=== PATIENT | male | born 1940 | race Two or more races ===

== ENCOUNTER → 2020-07-14 | Outpatient (CLI) | payer OTHER ==
[~2020-07-14] MED LIST: COUMADIN10 MG; HYDROCHLOROTH12.5 M1; LANOXIN0.25 MG; PROCARDIA90 MG/BLIS; SIMVASTATIN10 MG; ZESTRIL20 MG
== END | disposition home or self-care (01) ==
LOC: NUCLEAR 10:00
PROVIDERS: ATTEND Internal Medicine
DX: I70.213 Atherosclerosis of native arteries of extremities with intermittent claudication, bilateral legs (principal)

== ENCOUNTER → 2020-07-18 16:24 | Outpatient (CLI) | payer OTHER | END | disposition home or self-care (01) | LOC: NUCLEAR 11:00 | PROVIDERS: ATTEND Internal Medicine | DX: I87.9 Disorder of vein, unspecified (principal) ==

== ENCOUNTER 2021-09-17 15:54 | Emergency (ER) | payer OTHER ==
[~2021-09-17] VITALS: Ht 177.8 cm; Wt 113.4 kg
== END 2021-09-17 22:10 | disposition left against medical advice (07) ==
LOC: ER 15:54
DX: R10.32 Left lower quadrant pain (principal); K40.90 Unilateral inguinal hernia, without obstruction or gangrene, not specified as recurrent; I11.0 Hypertensive heart disease with heart failure; I50.9 Heart failure, unspecified; Z88.0 Allergy status to penicillin

== ENCOUNTER 2022-06-26 10:13 | Emergency (ER) | payer OTHER ==
[~2022-06-26] VITALS: Ht 180.3 cm; Wt 93.0 kg
== END 2022-06-26 14:50 | disposition home or self-care (01) ==
LOC: ER 10:13
DX: S50.312A Abrasion of left elbow, initial encounter (principal); W18.31XA Fall on same level due to stepping on an object, initial encounter; Y93.89 Activity, other specified; Y92.013 Bedroom of single-family (private) house as the place of occurrence of the external cause; S39.82XA Other specified injuries of lower back, initial encounter; Z88.0 Allergy status to penicillin

== ENCOUNTER → 2023-02-28 | Outpatient (CLI) | payer OTHER | END | disposition home or self-care (01) | LOC: RAD 12:34 | DX: J45.998 Other asthma (principal) ==

== ENCOUNTER 2023-03-19 20:40 | Inpatient (IN) | payer OTHER ==
[~2023-03-19] VITALS: Ht 177.8 cm; Wt 95.3 kg
[2023-03-19 23:19] LABS: HEMATOCRIT 34.4 % (39.0-48.0); HEMOGLOBIN 11.5 g/dL (13-16.00); MEAN CELL VOLUME 91.2 fL (80.0-100.00); MEAN CORPUSCULAR HEMOGLOBIN 30.4 pg (27.00-32.0); MEAN CORPUSCULAR HGB CONC 33.4 g/dl (32.0-36.0); PLATELET COUNT 189 K/uL (150-450); RED BLOOD COUNT 3.77 M/uL (4.00-6.00); RED CELL DISTRIBUTION WIDTH 16.3 % (11.5-14.5)
[2023-03-19 23:25] LABS: URINE APPEARANCE Clear; URINE BILIRRUBIN Negative (NEGATIVE); URINE BLOOD Negative; URINE COLOR Yellow; URINE GLUCOSE Negative (NEGATIVE); URINE LEUKOCYTE Negative; URINE NITRATE Negative; URINE PROTEIN Negative (NEGATIVE)
[2023-03-19 23:26] LABS: URINE BACTERIA 206.6 uL (0.0-1933); URINE EPITHELIAL CELLS 4.3 uL (0.0-38.8); URINE RBC 5.6 uL (0.0-20.8)
[2023-03-19 23:38] LABS: ALBUMIN 3.2 gm/dL (3.4-5.0); BILIRUBIN TOTAL 2.1 mg/dL (0.3-1.2); CALCIUM 9.3 mg/dL (8.5-10.1); GFR 71.54; GLOBULINA 3.5 G/DL (2.4-3.5); POTASSIUM 4.88 mEq/L (3.5-5.1); TOTAL PROTEIN 6.7 gm/dL (6.4-8.2)
[2023-03-19 23:41] LABS: INR 2.22
[2023-03-19 23:44] LABS: PARTIAL THROMBOPLASTIN TIME 39.3 SECONDS (22.0-34.0)
[2023-03-20] MEDS ORDERED: FUROsemide 20 MG/2 ML VIAL IV ONE (02:45)
[2023-03-20] MEDS ORDERED: FUROsemide 40 MG/4 ML VIAL IV SCH (11:40)
[2023-03-20 14:25] LABS: INR 2.28
[2023-03-20 14:31] LABS: PROTHROMBIN TIME 22.5 SECONDS (9.0-11.5)
[2023-03-20] MEDS ORDERED: SIMVASTATIN 10 MG TABLET PO SCH (17:00)
[2023-03-20 21:11] LABS: TP PERITONEAL FLUID 3.5 g/dl
[2023-03-21] MEDS ORDERED: NIFEDIPINE 90 MG TAB.SA.OSM PO SCH (09:00)
[2023-03-21] MEDS ORDERED: LISINOPRIL 20 MG TABLET PO SCH (09:00)
[2023-03-21] MEDS ORDERED: DIGOXIN 0.125 MG TABLET PO SCH (09:00)
[2023-03-21 19:14] LABS: INR 3.47; PROTHROMBIN TIME 33.2 SECONDS (9.0-11.5)
[2023-03-21] MEDS ORDERED: WARFARIN SODIUM 7.5 MG TABLET PO SCH (21:00)
[2023-03-21] MEDS ORDERED: WARFARIN SODIUM 5 MG TABLET PO SCH (21:00)
[2023-03-22 06:26] LABS: INR 3.14; PROTHROMBIN TIME 34.7 SECONDS (9.0-11.5)
[2023-03-22] MEDS ORDERED: SPIRONOLACTONE 25 MG TABLET PO SCH (09:00)
== END 2023-03-22 16:37 | disposition home or self-care (01) | DRG 309 ==
LOC: ER 20:40 → SEC-K 03-20 11:58 → MEDJ 03-20 11:58
PROVIDERS: Emergency Medicine; ADMIT Internal Medicine; ATTEND Internal Medicine
PROC: 0W9G3ZZ Drainage of Peritoneal Cavity, Percutaneous Approach (ICD-10-PCS; principal; 2023-03-20)
PROC: B24BYZZ Ultrasonography of Heart with Aorta using Other Contrast (ICD-10-PCS; 2023-03-21)
DX: I48.91 Unspecified atrial fibrillation (principal); R18.8 Other ascites; I48.20 Chronic atrial fibrillation, unspecified; I11.0 Hypertensive heart disease with heart failure; I50.9 Heart failure, unspecified; N50.89 Other specified disorders of the male genital organs

== ENCOUNTER 2023-04-17 13:54 | Inpatient (IN) | payer OTHER ==
[~2023-04-17] VITALS: Ht 177.8 cm; Wt 103.4 kg
[2023-04-17] MEDS ORDERED: LASIX20 MG PO (14:38)
[2023-04-17 17:51] LABS: HEMATOCRIT 32.1 % (39.0-48.0); HEMOGLOBIN 10.8 g/dL (13-16.00); MEAN CELL VOLUME 93.2 fL (80.0-100.00); MEAN CORPUSCULAR HEMOGLOBIN 31.3 pg (27.00-32.0); MEAN CORPUSCULAR HGB CONC 33.6 g/dl (32.0-36.0); PLATELET COUNT 209 K/uL (150-450); RED BLOOD COUNT 3.44 M/uL (4.00-6.00); RED CELL DISTRIBUTION WIDTH 18.6 % (11.5-14.5)
[2023-04-17 18:14] LABS: ALBUMIN 2.6 gm/dL (3.4-5.0); BILIRUBIN TOTAL 1.66 mg/dL (0.3-1.2); CALCIUM 9.2 mg/dL (8.5-10.1); CREATININE SERUM 0.68 mg/dL (0.70-1.30); GFR 111.64; GLOBULINA 4.1 G/DL (2.4-3.5); POTASSIUM 4.88 mEq/L (3.5-5.1); TOTAL PROTEIN 6.7 gm/dL (6.4-8.2)
[2023-04-17 18:21] LABS: URINE APPEARANCE Clear; URINE BILIRRUBIN Negative (NEGATIVE); URINE BLOOD NHT; URINE COLOR Yellow; URINE GLUCOSE Negative (NEGATIVE); URINE LEUKOCYTE Moderate; URINE NITRATE Negative; URINE PROTEIN Trace (NEGATIVE)
[2023-04-17 18:25] LABS: URINE BACTERIA 1118.7 uL (0.0-1933); URINE EPITHELIAL CELLS 3.4 uL (0.0-38.8); URINE RBC 42.6 uL (0.0-20.8); URINE WBC 553.3 uL (0.0-23.2)
[2023-04-17 18:31] LABS: ABG PO2 76.8 mmHg (80-100); ABG pCO2 40.1 mmHg (35-45); BASE EXCESS 3.9 mmol/l; BICARBONATE 27.9 mmol/l (23-25); SaO2 96.1 %; Tco2 29.2 mmol/l; allen test SATISFACTORY; o2 21 %; puncture site RADIAL RIGHT
[2023-04-17] MEDS ORDERED: KETOROLAC TROMETHAMINE 30 MG VIAL IV STA (19:55)
[2023-04-17] MEDS ORDERED: MEPERIDINE HCL/PF 25 MG/ML VIAL IM STA (19:55)
[2023-04-17] MEDS ORDERED: PROMETHAZINE HCL 25 MG/ML AMPUL IM STA (19:56)
[2023-04-18] MEDS ORDERED: ACETAMINOPHEN 500 MG GEL..CAP PO PRN ×2 (00:30→19:30)
[2023-04-18] MEDS ORDERED: ONDANSETRON HCL 4 MG in 0.9 % SODIUM CHLORIDE 50 ML IV PRN (00:30)
[2023-04-18] MEDS ORDERED: IPRATROPIUM BROMIDE 0.5 MG/2.5 ML AMPUL.NEB IH SCH (01:00)
[2023-04-18] MEDS ORDERED: FUROsemide 40 MG/4 ML VIAL IV SCH (01:00)
[2023-04-18 02:50] LABS: INR 3.32
[2023-04-18 02:51] LABS: ALBUMIN 2.6 gm/dL (3.4-5.0); BILIRUBIN TOTAL 1.65 mg/dL (0.3-1.2); BILIRUBIN,CONJUGATED 0.9 mg/dL (0.0-0.2); BILIRUBIN,UNCONJUGATED 0.75 mg/dL (0.0-0.6); MAGNESIUM 2.2 mg/dL (1.8-2.4)
[2023-04-18 03:06] LABS: PROTHROMBIN TIME 31.9 SECONDS (9.0-11.5)
[2023-04-18] MEDS ORDERED: SPIRONOLACTONE 50 MG TABLET PO SCH (09:00)
[2023-04-18] MEDS ORDERED: DIGOXIN 0.25 MG TABLET PO SCH (09:00)
[2023-04-18] MEDS ORDERED: CIPROFLOXACIN IN 5 % DEXTROSE 200 ML IV SCH (09:00)
[2023-04-18] MEDS ORDERED: FAMOTIDINE/PF 20 MG in 0.9 % SODIUM CHLORIDE 8 ML IV PUSH SCH (09:00)
[2023-04-18] MEDS ORDERED: AMINO ACIDS/PROTEIN HYDROLYS 30 ML BLIST.PACK PO SCH (09:00)
[2023-04-18] MEDS ORDERED: CEFTRIAXONE SODIUM 2,000 MG in 0.9 % SODIUM CHLORIDE 100 ML IV SCH (09:00)
[2023-04-18] MEDS ORDERED: LISINOPRIL 20 MG TABLET PO SCH (09:00)
[2023-04-18 11:29] LABS: ALBUMIN 2.5 gm/dL (3.4-5.0); BILIRUBIN TOTAL 1.88 mg/dL (0.3-1.2); CALCIUM 8.8 mg/dL (8.5-10.1); CREATININE SERUM 0.75 mg/dL (0.70-1.30); GFR 99.7; GLOBULINA 3.7 G/DL (2.4-3.5); POTASSIUM 4.17 mEq/L (3.5-5.1); TOTAL PROTEIN 6.2 gm/dL (6.4-8.2)
[2023-04-18] MEDS ORDERED: PANTOPRAZOLE SO40 MG (14:35)
[2023-04-18] MEDS ORDERED: FAMOTIDINE40 MG (14:35)
[2023-04-18] MEDS ORDERED: VITAMIN B-121000 MC1 (14:36)
[2023-04-18] MEDS ORDERED: FUROSEMIDE40 MG (14:37)
[2023-04-18] MEDS ORDERED: SIMVASTATIN 10 MG TABLET PO SCH (17:00)
[2023-04-18] MEDS ORDERED: VANCOMYCIN HCL 1,000 MG VIAL IV SCH (17:00)
[2023-04-18] MEDS ORDERED: MEROPENEM 500 MG/VIAL VIAL IV SCH ×2 (20:00)
[2023-04-18] MEDS ORDERED: WARFARIN SODIUM 7.5 MG TABLET PO SCH (21:00)
[2023-04-19] MEDS ORDERED: FUROsemide 40 MG/4 ML VIAL IV SCH (01:00)
[2023-04-19] MEDS ORDERED: VANCOMYCIN HCL 1,000 MG VIAL IV SCH (05:00)
[2023-04-19 08:02] LABS: HEMATOCRIT 30.8 % (39.0-48.0); HEMOGLOBIN 10.5 g/dL (13-16.00); MEAN CELL VOLUME 92.5 fL (80.0-100.00); MEAN CORPUSCULAR HEMOGLOBIN 31.4 pg (27.00-32.0); PLATELET COUNT 186 K/uL (150-450); RED BLOOD COUNT 3.33 M/uL (4.00-6.00); RED CELL DISTRIBUTION WIDTH 18.2 % (11.5-14.5)
[2023-04-19 08:47] LABS: D DIMER 1.19 MG/L; INR 2.85
[2023-04-19 08:48] LABS: PROTHROMBIN TIME 27.7 SECONDS (9.0-11.5)
[2023-04-19] MEDS ORDERED: DIGOXIN 0.25 MG TABLET PO SCH (09:00)
[2023-04-19] MEDS ORDERED: LISINOPRIL 20 MG TABLET PO SCH (09:00)
[2023-04-19] MEDS ORDERED: SPIRONOLACTONE 50 MG TABLET PO SCH (09:00)
[2023-04-19] MEDS ORDERED: AMINO ACIDS/PROTEIN HYDROLYS 30 ML BLIST.PACK PO SCH (09:00)
[2023-04-19 09:25] LABS: ALBUMIN 2.4 gm/dL (3.4-5.0); BILIRUBIN TOTAL 2.02 mg/dL (0.3-1.2); CALCIUM 8.5 mg/dL (8.5-10.1); CREATININE SERUM 0.75 mg/dL (0.70-1.30); GFR 99.7; GLOBULINA 3.2 G/DL (2.4-3.5); MAGNESIUM 2.1 mg/dL (1.8-2.4); PHOSPHOROUS 3.3 mg/dL (2.5-4.9); POTASSIUM 3.88 mEq/L (3.5-5.1); TOTAL PROTEIN 5.6 gm/dL (6.4-8.2)
[2023-04-19 09:26] LABS: C-REACTIVE PROTEIN 5.37 MG/DL (0.00-0.29)
[2023-04-19] MEDS ORDERED: SIMVASTATIN 10 MG TABLET PO SCH (17:00)
[2023-04-20] MEDS ORDERED: FUROsemide 40 MG/4 ML VIAL IV SCH (09:00)
[2023-04-20] MEDS ORDERED: LISINOPRIL 20 MG TABLET PO SCH (09:00)
[2023-04-20 10:20] LABS: URINE APPEARANCE Clear; URINE BILIRRUBIN Negative (NEGATIVE); URINE BLOOD Negative; URINE COLOR Dark Yellow; URINE GLUCOSE Negative (NEGATIVE); URINE LEUKOCYTE Moderate; URINE NITRATE Negative; URINE PROTEIN Negative (NEGATIVE)
[2023-04-20 10:24] LABS: URINE BACTERIA 25.1 uL (0.0-1933); URINE EPITHELIAL CELLS 4.3 uL (0.0-38.8); URINE WBC 253.2 uL (0.0-23.2)
[2023-04-20 10:35] LABS: URINE RBC 1.1 uL (0.0-20.8); URINE UROBILINOGEN >= 8.0 E.U./dl
[2023-04-21] MEDS ORDERED: LACTULOSE 20 G/30 ML BLIST.PACK PO SCH (09:40)
[2023-04-21] MEDS ORDERED: FAMOtidine 20 MG TABLET PO SCH (21:00)
[2023-04-22 07:11] LABS: INR 1.6
[2023-04-22 07:14] LABS: PROTHROMBIN TIME 16.2 SECONDS (9.0-11.5)
[2023-04-22] MEDS ORDERED: ENOXAPARIN SODIUM 100 MG/ML SYRINGE SUBCUTANEO SCH (09:00)
[2023-04-22] MEDS ORDERED: ENOXAPARIN SODIUM SUBCUTANEO SCH (09:00)
[2023-04-23 06:14] LABS: INR 1.61
[2023-04-23 06:16] LABS: PROTHROMBIN TIME 16.3 SECONDS (9.0-11.5)
[2023-04-24 05:30] LABS: HEMATOCRIT 30.2 % (39.0-48.0); HEMOGLOBIN 10.3 g/dL (13-16.00); MEAN CELL VOLUME 93.2 fL (80.0-100.00); MEAN CORPUSCULAR HEMOGLOBIN 31.7 pg (27.00-32.0); MEAN CORPUSCULAR HGB CONC 34.1 g/dl (32.0-36.0); PLATELET COUNT 211 K/uL (150-450); RED BLOOD COUNT 3.24 M/uL (4.00-6.00)
[2023-04-24 05:43] LABS: ALBUMIN 2.3 gm/dL (3.4-5.0); BILIRUBIN TOTAL 1.25 mg/dL (0.3-1.2); CALCIUM 8.9 mg/dL (8.5-10.1); CREATININE SERUM 0.67 mg/dL (0.70-1.30); GFR 113.56; GLOBULINA 3.3 G/DL (2.4-3.5); MAGNESIUM 1.8 mg/dL (1.8-2.4); POTASSIUM 3.92 mEq/L (3.5-5.1); TOTAL PROTEIN 5.6 gm/dL (6.4-8.2)
[2023-04-24 05:44] LABS: C-REACTIVE PROTEIN 1.36 MG/DL (0.00-0.29)
== END 2023-04-24 15:59 | disposition home or self-care (01) | DRG 291 ==
LOC: ER 13:55 → MEDJ 04-18 00:33 → SEC-K 04-18 00:33 → MEDJ 04-18 19:27
PROVIDERS: General Practice; Internal Medicine; Internal Medicine Infectious Disease; ADMIT Internal Medicine; ATTEND Internal Medicine
PROC: B24BZZZ Ultrasonography of Heart with Aorta (ICD-10-PCS; 2023-04-18)
PROC: 4A12X4Z Monitoring of Cardiac Electrical Activity, External Approach (ICD-10-PCS; 2023-04-19)
PROC: 0W9G3ZZ Drainage of Peritoneal Cavity, Percutaneous Approach (ICD-10-PCS; principal; 2023-04-22)
DX: I11.0 Hypertensive heart disease with heart failure (principal); I50.33 Acute on chronic diastolic (congestive) heart failure; J18.9 Pneumonia, unspecified organism; N39.0 Urinary tract infection, site not specified; R18.8 Other ascites; E78.5 Hyperlipidemia, unspecified; I48.91 Unspecified atrial fibrillation; Z79.01 Long term (current) use of anticoagulants; I27.20 Pulmonary hypertension, unspecified; I07.1 Rheumatic tricuspid insufficiency; K76.89 Other specified diseases of liver

== ENCOUNTER 2023-08-06 09:38 | Inpatient (IN) | payer OTHER ==
[~2023-08-06] VITALS: Ht 152.4 cm; Wt 207.7 kg
[~2023-08-06 09:38] MED LIST changes: +FAMOTIDINE40 MG; +FUROSEMIDE40 MG; +LASIX20 MG PO; +PANTOPRAZOLE SO40 MG; +VITAMIN B-121000 MC1
[2023-08-06] MEDS ORDERED: ORPHENADRINE CITRATE 30 MG/ML AMPUL IM STA (11:01)
[2023-08-06 12:13] LABS: PH,URINE 5.5 (5.0-8.0); URINE BILIRRUBIN Negative (NEGATIVE); URINE COLOR Yellow; URINE GLUCOSE Negative (NEGATIVE); URINE LEUKOCYTE Small; URINE NITRATE Negative; URINE PROTEIN Negative (NEGATIVE); URINE UROBILINOGEN 0.2 E.U./dl
[2023-08-06 12:18] LABS: URINE BACTERIA 273.3 uL (0.0-1933); URINE EPITHELIAL CELLS 3.2 uL (0.0-38.8); URINE RBC 16.7 uL (0.0-20.8)
[2023-08-06 12:24] LABS: URINE APPEARANCE CLEAR; URINE BLOOD TRACES
[2023-08-06] MEDS ORDERED: BACTRIM 400-801 EACH PO (16:01)
[2023-08-06] MEDS ORDERED: FUROsemide 20 MG/2 ML VIAL IV SCH (19:25)
[2023-08-06] MEDS ORDERED: GABAPENTIN 300 MG CAPSULE PO SCH (19:26)
[2023-08-06] MEDS ORDERED: levoFLOXacin IN DEXTROSE 5 % 150 ML IV SCH (19:29)
[2023-08-06] MEDS ORDERED: MORPHINE SULFATE 4 MG/ML CARTRIDGE IV ONE (19:30)
[2023-08-06] MEDS ORDERED: MORPHINE SULFATE 2 MG/ML CARTRIDGE IV PRN (19:30)
[2023-08-06] MEDS ORDERED: ONDANSETRON HCL 4 MG in 0.9 % SODIUM CHLORIDE 50 ML IV PRN (19:30)
[2023-08-06] MEDS ORDERED: levoFLOXacin IN DEXTROSE 5 % 5 MG/ML PIGGYBAG IV ONE (20:44)
[2023-08-06] MEDS ORDERED: FUROsemide 20 MG/2 ML VIAL ONE (20:44)
[2023-08-06 21:34] LABS: HEMATOCRIT 33.3 % (39.0-48.0); HEMOGLOBIN 11.1 g/dL (13-16.00); MEAN CELL VOLUME 92.5 fL (80.0-100.00); MEAN CORPUSCULAR HEMOGLOBIN 30.9 pg (27.00-32.0); MEAN CORPUSCULAR HGB CONC 33.4 g/dl (32.0-36.0); PLATELET COUNT 226 K/uL (150-450); RED CELL DISTRIBUTION WIDTH 17.9 % (11.5-14.5)
[2023-08-06 22:01] LABS: ERYTHROCYTE SEDIMENTATION RATE 28 mm/hr
[2023-08-07 00:19] LABS: ALBUMIN 3.1 gm/dL (3.4-5.0); BILIRUBIN TOTAL 1.77 mg/dL (0.3-1.2); CALCIUM 9.4 mg/dL (8.5-10.1); CREATININE SERUM 1.36 mg/dL (0.70-1.30); GFR 50.04; GLOBULINA 3.8 G/DL (2.4-3.5); POTASSIUM 4.77 mEq/L (3.5-5.1); TOTAL PROTEIN 6.9 gm/dL (6.4-8.2)
[2023-08-07 00:42] LABS: PARTIAL THROMBOPLASTIN TIME 47.6 SECONDS (22.0-34.0)
[2023-08-07 00:43] LABS: INR 3.7
[2023-08-07 01:05] LABS: PROTHROMBIN TIME 35.3 SECONDS (9.0-11.5)
[2023-08-07] MEDS ORDERED: PHYTONADIONE 10 MG/ML AMPUL IV ONE (01:15)
[2023-08-07] MEDS ORDERED: FUROsemide 20 MG/2 ML VIAL ONE (04:22)
[2023-08-07] MEDS ORDERED: DIGOXIN 0.25 MG TABLET PO SCH (09:00)
[2023-08-07] MEDS ORDERED: SPIRONOLACTONE 50 MG TABLET PO SCH (09:00)
[2023-08-07] MEDS ORDERED: FINASTERIDE 5 MG TABLET PO SCH (09:00)
[2023-08-07] MEDS ORDERED: PHYTONADIONE 10 MG/ML AMPUL IV STA (22:53)
[2023-08-08 02:56] LABS: HEMATOCRIT 31.2 % (39.0-48.0); HEMOGLOBIN 10.4 g/dL (13-16.00); MEAN CORPUSCULAR HGB CONC 33.3 g/dl (32.0-36.0); PLATELET COUNT 197 K/uL (150-450); RED BLOOD COUNT 3.36 M/uL (4.00-6.00); RED CELL DISTRIBUTION WIDTH 17.6 % (11.5-14.5)
[2023-08-08 03:19] LABS: ALBUMIN 2.8 gm/dL (3.4-5.0); BILIRUBIN TOTAL 1.88 mg/dL (0.3-1.2); CALCIUM 9.2 mg/dL (8.5-10.1); CREATININE SERUM 1.19 mg/dL (0.70-1.30); GFR 58.38; GLOBULINA 3.2 G/DL (2.4-3.5); MAGNESIUM 2.1 mg/dL (1.8-2.4); PHOSPHOROUS 3.4 mg/dL (2.5-4.9); POTASSIUM 5.27 mEq/L (3.5-5.1)
[2023-08-08 03:20] LABS: INR 1.54
[2023-08-08 03:39] LABS: C-REACTIVE PROTEIN 0.88 MG/DL (0.00-0.29)
[2023-08-08 03:40] LABS: PARTIAL THROMBOPLASTIN TIME 39.9 SECONDS (22.0-34.0)
[2023-08-08 03:41] LABS: PROTHROMBIN TIME 15.7 SECONDS (9.0-11.5)
[2023-08-08] MEDS ORDERED: hydrALAZINE HCL 20 MG VIAL IV PRN (14:30)
[2023-08-08] MEDS ORDERED: LISINOPRIL 20 MG TABLET PO SCH (17:00)
[2023-08-08] MEDS ORDERED: CEFTRIAXONE SODIUM 2,000 MG VIAL IV SCH (17:00)
[2023-08-09 10:26] LABS: PH,URINE 5.5 (5.0-8.0); URINE APPEARANCE Clear; URINE BILIRRUBIN Negative (NEGATIVE); URINE BLOOD Negative; URINE COLOR Yellow; URINE GLUCOSE Negative (NEGATIVE); URINE LEUKOCYTE Negative; URINE NITRATE Negative; URINE PROTEIN Trace (NEGATIVE)
[2023-08-09 10:32] LABS: URINE BACTERIA 41.5 uL (0.0-1933); URINE EPITHELIAL CELLS 5.2 uL (0.0-38.8); URINE RBC 2.4 uL (0.0-20.8); URINE WBC 4.7 uL (0.0-23.2)
[2023-08-10 09:52] LABS: INR 1.35; PARTIAL THROMBOPLASTIN TIME 34.5 SECONDS (22.0-34.0); PROTHROMBIN TIME 13.9 SECONDS (9.0-11.5)
[2023-08-10 10:18] LABS: ALBUMIN 2.6 gm/dL (3.4-5.0); BILIRUBIN TOTAL 1.62 mg/dL (0.3-1.2); CREATININE SERUM 0.82 mg/dL (0.70-1.30); GFR 89.73; GLOBULINA 2.9 G/DL (2.4-3.5); PHOSPHOROUS 2.8 mg/dL (2.5-4.9); POTASSIUM 4.42 mEq/L (3.5-5.1); TOTAL PROTEIN 5.5 gm/dL (6.4-8.2)
[2023-08-10 10:59] LABS: HEMATOCRIT 31.1 % (39.0-48.0); HEMOGLOBIN 10.7 g/dL (13-16.00); MEAN CELL VOLUME 92.4 fL (80.0-100.00); MEAN CORPUSCULAR HEMOGLOBIN 31.9 pg (27.00-32.0); MEAN CORPUSCULAR HGB CONC 34.5 g/dl (32.0-36.0); PLATELET COUNT 183 K/uL (150-450); RED BLOOD COUNT 3.37 M/uL (4.00-6.00); RED CELL DISTRIBUTION WIDTH 16.9 % (11.5-14.5)
[2023-08-10] MEDS ORDERED: WARFARIN SODIUM 7.5 MG TABLET PO SCH (21:00)
[2023-08-10] MEDS ORDERED: WARFARIN SODIUM PO SCH (21:00)
[2023-08-10] MEDS ORDERED: ENOXAPARIN SODIUM 100 MG/ML SYRINGE SUBCUTANEO SCH (22:30)
[2023-08-11 09:16] LABS: INR 1.34; PROTHROMBIN TIME 13.8 SECONDS (9.0-11.5)
[2023-08-11] MEDS ORDERED: WARFARIN SODIUM 5 MG TABLET PO SCH (21:00)
[2023-08-12 07:22] LABS: INR 1.36
[2023-08-12 07:26] LABS: PARTIAL THROMBOPLASTIN TIME 39.6 SECONDS (22.0-34.0)
[2023-08-12] MEDS ORDERED: KETOROLAC TROMETHAMINE 30 MG VIAL IV PRN (12:30)
[2023-08-12] MEDS ORDERED: ORPHENADRINE CITRATE 30 MG/ML AMPUL IV PRN (12:30)
[2023-08-12] MEDS ORDERED: LACTOBACILLUS ACIDOPHILUS 1 CAP CAP PO SCH (17:00)
[2023-08-12] MEDS ORDERED: WARFARIN SODIUM 10 MG TABLET PO SCH (21:00)
[2023-08-13 07:31] LABS: INR 1.81
[2023-08-13 07:33] LABS: PARTIAL THROMBOPLASTIN TIME 45.7 SECONDS (22.0-34.0); PROTHROMBIN TIME 18.2 SECONDS (9.0-11.5)
[2023-08-13 08:52] LABS: HEMATOCRIT 32.1 % (39.0-48.0); MEAN CELL VOLUME 92.3 fL (80.0-100.00); MEAN CORPUSCULAR HEMOGLOBIN 31.5 pg (27.00-32.0); MEAN CORPUSCULAR HGB CONC 34.1 g/dl (32.0-36.0); PLATELET COUNT 199 K/uL (150-450); RED BLOOD COUNT 3.48 M/uL (4.00-6.00); RED CELL DISTRIBUTION WIDTH 17.7 % (11.5-14.5)
[2023-08-13 09:22] LABS: ALBUMIN 2.4 gm/dL (3.4-5.0); BILIRUBIN TOTAL 1.37 mg/dL (0.3-1.2); CALCIUM 8.4 mg/dL (8.5-10.1); CREATININE SERUM 0.88 mg/dL (0.70-1.30); GFR 82.7; GLOBULINA 2.9 G/DL (2.4-3.5); MAGNESIUM 2.1 mg/dL (1.8-2.4); PHOSPHOROUS 2.6 mg/dL (2.5-4.9); POTASSIUM 4.72 mEq/L (3.5-5.1); TOTAL PROTEIN 5.3 gm/dL (6.4-8.2)
[2023-08-13 09:29] LABS: C-REACTIVE PROTEIN 0.65 MG/DL (0.00-0.29)
[2023-08-13] MEDS ORDERED: FUROsemide 40 MG TABLET PO SCH (17:00)
[2023-08-13] MEDS ORDERED: WARFARIN SODIUM PO SCH (21:00)
[2023-08-13] MEDS ORDERED: WARFARIN SODIUM 7.5 MG TABLET PO SCH (21:00)
[2023-08-14 08:21] LABS: HEMATOCRIT 27.2 % (39.0-48.0); HEMOGLOBIN 9.3 g/dL (13-16.00); MEAN CELL VOLUME 91.7 fL (80.0-100.00); MEAN CORPUSCULAR HEMOGLOBIN 31.5 pg (27.00-32.0); MEAN CORPUSCULAR HGB CONC 34.3 g/dl (32.0-36.0); PLATELET COUNT 199 K/uL (150-450); RED BLOOD COUNT 2.96 M/uL (4.00-6.00); RED CELL DISTRIBUTION WIDTH 18.4 % (11.5-14.5)
[2023-08-14 08:47] LABS: INR 2.27
[2023-08-14 08:53] LABS: PARTIAL THROMBOPLASTIN TIME 50.3 SECONDS (22.0-34.0); PROTHROMBIN TIME 22.4 SECONDS (9.0-11.5)
[2023-08-14 08:58] LABS: ALBUMIN 2.2 gm/dL (3.4-5.0); BILIRUBIN TOTAL 0.86 mg/dL (0.3-1.2); CALCIUM 8.2 mg/dL (8.5-10.1); CREATININE SERUM 0.87 mg/dL (0.70-1.30); GFR 83.8; GLOBULINA 2.8 G/DL (2.4-3.5); PHOSPHOROUS 2.2 mg/dL (2.5-4.9)
[2023-08-14 08:59] LABS: POTASSIUM 5.91 mEq/L (3.5-5.1)
[2023-08-14] MEDS ORDERED: ONDANSETRON HCL 2 MG/ML VIAL IV STA (12:08)
[2023-08-14 13:31] LABS: CKMB 2.6 NG/ML (0.5-3.6)
[2023-08-14] MEDS ORDERED: PANTOPRAZOLE SODIUM 80 MG in 0.9 % SODIUM CHLORIDE 100 ML IV SCH (16:00)
[2023-08-14 16:33] LABS: FECAL LEUKOCYTES POSITIVE (NEGATIVE); ob POSITIVE (NEGATIVE)
[2023-08-14] MEDS ORDERED: VANCOMYCIN HCL 125 MG/7.5 ML BLIST.PACK PO SCH (18:00)
[2023-08-14 18:32] LABS: MEAN CELL VOLUME 91.6 fL (80.0-100.00); PLATELET COUNT 222 K/uL (150-450)
[2023-08-14 18:37] LABS: MEAN CORPUSCULAR HEMOGLOBIN 31.8 pg (27.00-32.0)
[2023-08-14 18:39] LABS: HEMATOCRIT 20.1 % (39.0-48.0)
[2023-08-14] MEDS ORDERED: FUROsemide 20 MG/2 ML VIAL IV SCH (18:45)
[2023-08-14] MEDS ORDERED: LORazepam 2 MG/ML VIAL IV PUSH PRN (18:45)
[2023-08-14] MEDS ORDERED: MEPERIDINE HCL/PF 25 MG/ML VIAL IV PRN (18:45)
[2023-08-14] MEDS ORDERED: TRAMADOL HCL 50 MG TABLET PO ONE (19:30)
[2023-08-14] MEDS ORDERED: NOREPINEPHRINE BITARTRATE 4 MG in DEXTROSE 5 % IN WATER 250 ML IV SCH (22:15)
[2023-08-15] MEDS ORDERED: FUROsemide 20 MG/2 ML VIAL IV SCH (09:00)
[2023-08-15 11:56] LABS: CREATININE SERUM 2.04 mg/dL (0.70-1.30); DIGOXIN 0.9 ng/ml (0.8-2.0); GFR 31.34
[2023-08-15 13:07] LABS: POTASSIUM 7.11 mEq/L (3.5-5.1)
[2023-08-15] MEDS ORDERED: PHYTONADIONE 10 MG/ML AMPUL IV STA ×2 (13:39→21:26)
[2023-08-15] MEDS ORDERED: SODIUM POLYSTYRENE SULFONATE 15 G/4 TSP TSP PO STA (13:40)
[2023-08-15] MEDS ORDERED: METRONIDAZOLE/SODIUM CHLORIDE 100 ML IV SCH (17:00)
[2023-08-15 20:58] LABS: PROTHROMBIN TIME 72.1 SECONDS (9.0-11.5)
[2023-08-15 21:05] LABS: CKMB 156.3 NG/ML (0.5-3.6)
[2023-08-16] MEDS ORDERED: SODIUM POLYSTYRENE SULFONATE 30GM/8 TSP PO SCH (01:00)
[2023-08-16] MEDS ORDERED: AA 4.25%/CAL/LYTES/DEXT 5% 1,000 ML PERIFERAL SCH (17:00)
== END 2023-08-15 22:30 | disposition expired | DRG 377 ==
LOC: ER 09:39 → SEC-K 19:31 → MEDJ 19:31
PROVIDERS: General Practice; Internal Medicine; Internal Medicine Infectious Disease; Internal Medicine Nephrology; ADMIT Internal Medicine; ATTEND Internal Medicine
PROC: BW21ZZZ Computerized Tomography (CT Scan) of Abdomen and Pelvis (ICD-10-PCS; principal; 2023-08-06)
PROC: 0W9G3ZZ Drainage of Peritoneal Cavity, Percutaneous Approach (ICD-10-PCS; 2023-08-08)
PROC: 30233K1 Transfusion of Nonautologous Frozen Plasma into Peripheral Vein, Percutaneous Approach (ICD-10-PCS; 2023-08-08)
PROC: 4A12X4Z Monitoring of Cardiac Electrical Activity, External Approach (ICD-10-PCS; 2023-08-14)
PROC: 30233N1 Transfusion of Nonautologous Red Blood Cells into Peripheral Vein, Percutaneous Approach (ICD-10-PCS; 2023-08-15)
DX: K57.31 Diverticulosis of large intestine without perforation or abscess with bleeding (principal); I21.A1 Myocardial infarction type 2; I48.20 Chronic atrial fibrillation, unspecified; N39.0 Urinary tract infection, site not specified; R18.8 Other ascites; D50.0 Iron deficiency anemia secondary to blood loss (chronic); I27.20 Pulmonary hypertension, unspecified; I11.0 Hypertensive heart disease with heart failure; I50.9 Heart failure, unspecified; E11.9 Type 2 diabetes mellitus without complications; R57.1 Hypovolemic shock; R79.89 Other specified abnormal findings of blood chemistry; K92.1 Melena; I71.40 Abdominal aortic aneurysm, without rupture, unspecified